=== PATIENT | female | born 1990 | race African-American/Black ===

== ENCOUNTER 2020-01-25 05:23 | Inpatient (IN) ==
[2020-01-25 06:04] LABS: Amorphous Crystals,Urine Occasional /HPF (Few); Bacteria,Urine Occasional /HPF (Few); Bilirubin,Urine Negative (Negative); Blood, Urine Small mg/dL (Negative); Glucose,Urine (UA) Negative (Negative); Hyaline Casts,Urine 7 /LPF (0-3); Ketones,Urine Negative (Negative); Mucus,Urine Few /LPF (Occasional); Nitrite,Urine Negative (Negative); Protein,Urine >=500 MG/DL; RBC,Urine 6 /HPF (0-4); Squamous Epithelial Cell,Urine Occasional /HPF (0-10); Urine Appearance CLOUDY (Clear); Urine Color Yellow (Yellow); Urine Specific Gravity 1.024 (1.001-1.035); Urine Urobilinogen < 2.0 EU/DL (0.2-1.0); WBC,Urine 11 /HPF (0-6)
[2020-01-25] MEDS ORDERED: LACTATED RINGERS 1,000 ML IV ONE ×2 (06:09→06:31)
[2020-01-25 06:20] LABS: Barbiturates Screen,Urine Negative (Negative); Benzodiazepines Screen,Urine Negative (Negative); Cannabinoid Screen,Urine Positive (Negative); Opiate Screen,Urine Negative (Negative); Phencyclidine Screen,Urine Negative (Negative)
[2020-01-25] MEDS ORDERED: LABETALOL 100 MG TABLET PO ONE (06:34)
[2020-01-25] MEDS ORDERED: BETAMETH SODIUM PHOS/ACETATE 30 MG/5 ML VIAL IM ONE (06:36)
[2020-01-25] MEDS ORDERED: FAMOTIDINE 20 MG/2 ML VIAL IV ONE (06:37)
[2020-01-25] MEDS ORDERED: CITRIC ACID/SODIUM CITRATE 30 ML UDCUP PO ONE (06:37)
[2020-01-25] MEDS ORDERED: ceFAZolin 3,000 MG in SYRINGE 1 EACH IV ONE ×2 (06:37→07:00)
[2020-01-25] MEDS ORDERED: LABETALOL 100 MG TABLET ONE (06:39)
[2020-01-25] MEDS ORDERED: hydrALAZINE 20 MG/1 ML VIAL ONE (06:39)
[2020-01-25] MEDS: hydrALAZINE 20 MG/1 ML VIAL IV PRN ×2 (06:42→07:01)
[2020-01-25 06:44] LABS: Basophils % 0.2 % (0.0-0.8); Eosinophils % 0.5 % (0.00-10.9); Hematocrit 34.3 VOL% (35.7-47.0); Hemoglobin 10.8 GM/DL (12.0-16.0); Immature Granulocytes Absolute 0.09 #; Lymphocytes # 1.9 10*3/uL (1.4-4.0); Lymphocytes % 21.6 % (21.3-54.2); Mean Corpuscular HGB Conc 31.5 GM/DL (32-36); Mean Corpuscular Volume 80.1 FL (87-102); Mean Platelet Volume 12.5 FL (9.6-12.0); Monocytes % 15.7 % (1.7-12.7); Platelet Count 250 T/CUMM (130-400); Red Blood Count 4.28 MC/CUMM (3.8-5.5); Red Cell Distribution Width 16.4 % (9.3-17.3); White Blood Count 8.7 T/CUMM (4-12)
[2020-01-25 06:58] LABS: Alanine Aminotransferase 28 U/L (13-56); Albumin 2.3 G/DL (3.4-5.0); Alkaline Phosphatase 162 U/L (45-117); Aspartate Amino Transferase 27 U/L (0-37); Bilirubin,Direct < 0.100 MG/DL (0.0-0.20); Bilirubin,Total < 0.39 MG/DL (0.2-1.0); Blood Urea Nitrogen 7 MG/DL (7-18); Calcium 8.9 MG/DL (8.5-10.1); Estimated Glom Filtration Rate 111 ML/MIN; Glucose 90 MG/DL (74-106); Osmolality,Calculated 272.7 MOS/KG (273-304); Total Protein 6.7 G/DL (6.4-8.3); Uric Acid 6.2 MG/DL (2.6-6.0)
[2020-01-25 06:59] LABS: INR 0.9; PT Patient Result 9.4 SECS (9.8-11.9); Partial Thromboplastin Time 29.2 SECS (23.9-33.8)
[2020-01-25] MEDS ORDERED: LACTATED RINGERS 1,000 ML IV SCH (07:00)
[2020-01-25] MEDS ORDERED: OXYTOCIN/LR 20 UNIT/1,000 ML BAG IV ONE ×3 (07:02→08:42)
[2020-01-25] MEDS ORDERED: miSOPROStoL 200 MCG TABLET ONE (07:03)
[2020-01-25] MEDS ORDERED: CARBOPROST TROMETHAMINE 250 MCG/ML AMP IM ONE ×2 (07:04→07:55)
[2020-01-25] MEDS ORDERED: METHYLERGONOVINE 0.2 MG/1 ML AMP ONE (07:04)
[2020-01-25] MEDS ORDERED: TRANEXAMIC ACID 1,000 MG/10 ML VIAL ONE (07:04)
[2020-01-25 07:06] LABS: Eosinophils 2 % (0-10); Hypochromasia 1+; Lymphocytes 20 % (20-55); Platelet Estimate Adequate; Segmented Neutrophils 69 % (50-85); Total Cells Counted 100
[2020-01-25] MEDS ORDERED: MAGNESIUM SULF RIDER 100 ML IV ONE ×2 (07:16)
[2020-01-25] MEDS ORDERED: MAGNESIUM SULF DRIP 40 GM/1,000 ML ML IV SCH (07:30)
[2020-01-25 08:11] LABS: Cord Arterial Blood HCO3 22.7 MMOL/L
[2020-01-25 08:14] LABS: Cord Venous Blood HCO3 21.3 MMOL/L; Cord Venous Blood PCO2 41.3 MMHG; Cord Venous Blood PO2 21.1 MMHG
[2020-01-25 08:25] LABS: Bilirubin,Urine Negative (Negative); Blood, Urine Trace mg/dL (Negative); Glucose,Urine (UA) Negative (Negative); Hyaline Casts,Urine 7 /LPF (0-3); Ketones,Urine Negative (Negative); Mucus,Urine Occasional /LPF (Occasional); Nitrite,Urine Negative (Negative); Protein,Urine >=500 MG/DL; Squamous Epithelial Cell,Urine Occasional /HPF (0-10); Urine Appearance Hazy (Clear); Urine Color Amber (Yellow); WBC,Urine 13 /HPF (0-6)
[2020-01-25 08:26] LABS: Urine Urobilinogen < 2.0 EU/DL (0.2-1.0)
[2020-01-25] MEDS ORDERED: HYDROmorphone 2 MG/1 ML VIAL IV PRN (08:38)
[2020-01-25] MEDS ORDERED: oxyCODONE/ACETAMINOPHEN 5-325 MG TABLET PO PRN (08:42)
[2020-01-25] MEDS ORDERED: BISACODYL 10 MG SUPP RECTAL PRN (08:42)
[2020-01-25] MEDS ORDERED: MEASLES/MUMPS/RUBELLA VACCINE 0.5 ML VIAL SUBCUT ONE (08:42)
[2020-01-25] MEDS ORDERED: ACETAMINOPHEN 325 MG TABLET PO PRN (08:42)
[2020-01-25] MEDS ORDERED: ONDANSETRON 4 MG/2 ML VIAL IV PRN (08:42)
[2020-01-25] MEDS ORDERED: LANOLIN 50% CREAM 0.3 OZ TUBE TOP PRN (08:42)
[2020-01-25] MEDS ORDERED: RHO(D) IMMUNE GLOBULIN 300 MCG SYRINGE IM ONE (08:42)
[2020-01-25] MEDS ORDERED: HYDROCORTISONE 2.5% RECTAL CREAM 30 GM TUBE TOP PRN (08:42)
[2020-01-25] MEDS ORDERED: WITCH HAZEL PADS 100/JAR TOP PRN (08:42)
[2020-01-25] MEDS ORDERED: DIPH/TET/ACEL PERT BOOSTER VACCINE 0.5 ML VIAL IM ONE (08:42)
[2020-01-25] MEDS ORDERED: BENZOCAINE 20%/MENTHOL 0.5% SPRAY 56 GM CAN TOP PRN (08:42)
[2020-01-25] MEDS ORDERED: LABETALOL 20 MG/4 ML SYRINGE IV ONE (08:49)
[2020-01-25] MEDS ORDERED: BUPIVACAINE SPINAL 0.75% 2 ML AMP SPINAL ONE (08:49)
[2020-01-25] MEDS ORDERED: MORPHINE 10 MG/10 ML VIAL ONE (08:50)
[2020-01-25] MEDS ORDERED: KETAMINE 500 MG/10 ML VIAL ONE (08:50)
[2020-01-25] MEDS ORDERED: MIDAZOLAM 2 MG/2 ML VIAL ONE (08:51)
[2020-01-25] MEDS ORDERED: ONDANSETRON 4 MG/2 ML VIAL ONE (08:51)
[2020-01-25] MEDS ORDERED: fentaNYL 100 MCG/2 ML VIAL ONE (08:51)
[2020-01-25] MEDS: ceFAZolin 1,000 MG in SYRINGE 1 EACH IV SCH ×2 (17:10→22:36)
[2020-01-25] MEDS: IBUPROFEN 800 MG TABLET PO PRN (21:41)
[2020-01-25] MEDS: DOCUSATE SODIUM 100 MG CAPSULE PO SCH (22:41)
[2020-01-26 04:20] LABS: Basophils % 0.1 % (0.0-0.8); Hematocrit 25.5 VOL% (35.7-47.0); Hemoglobin 8.1 GM/DL (12.0-16.0); Immature Granulocytes % 0.6 %; Lymphocytes # 1.4 10*3/uL (1.4-4.0); Lymphocytes % 8.7 % (21.3-54.2); Mean Corpuscular HGB Conc 31.8 GM/DL (32-36); Mean Corpuscular Volume 78.9 FL (87-102); Mean Platelet Volume 12.9 FL (9.6-12.0); Monocytes % 8.6 % (1.7-12.7); Platelet Count 218 T/CUMM (130-400); Red Blood Count 3.23 MC/CUMM (3.8-5.5); Red Cell Distribution Width 16.1 % (9.3-17.3); White Blood Count 15.8 T/CUMM (4-12)
[2020-01-26] MEDS ORDERED: oxyCODONE/ACETAMINOPHEN 5-325 MG TABLET PO PRN ×2 (08:33)
[2020-01-26] MEDS ORDERED: DIPH/TET/ACEL PERT BOOSTER VACCINE 0.5 ML VIAL IM ONE (08:33)
[2020-01-26] MEDS ORDERED: WITCH HAZEL PADS 100/JAR TOP PRN (08:33)
[2020-01-26] MEDS ORDERED: OXYTOCIN/LR 20 UNIT/1,000 ML BAG IV ONE (08:33)
[2020-01-26] MEDS ORDERED: HYDROCORTISONE 2.5% RECTAL CREAM 30 GM TUBE TOP PRN (08:33)
[2020-01-26] MEDS ORDERED: ACETAMINOPHEN 325 MG TABLET PO PRN (08:33)
[2020-01-26] MEDS ORDERED: IBUPROFEN 800 MG TABLET PO PRN (08:33)
[2020-01-26] MEDS ORDERED: MEASLES/MUMPS/RUBELLA VACCINE 0.5 ML VIAL SUBCUT ONE (08:33)
[2020-01-26] MEDS ORDERED: BISACODYL 10 MG SUPP RECTAL PRN (08:33)
[2020-01-26] MEDS ORDERED: BENZOCAINE 20%/MENTHOL 0.5% SPRAY 56 GM CAN TOP PRN (08:33)
[2020-01-26] MEDS ORDERED: RHO(D) IMMUNE GLOBULIN 300 MCG SYRINGE IM ONE (08:33)
[2020-01-26] MEDS ORDERED: ONDANSETRON 4 MG/2 ML VIAL IV PRN (08:33)
[2020-01-26] MEDS ORDERED: LANOLIN 50% CREAM 0.3 OZ TUBE TOP PRN (08:33)
[2020-01-26] MEDS: LABETALOL 200 MG TABLET PO SCH ×2 (08:40→16:40)
[2020-01-26] MEDS: IBUPROFEN 800 MG TABLET PO PRN ×2 (08:49→22:11)
[2020-01-26] MEDS ORDERED: DOCUSATE SODIUM 100 MG CAPSULE PO SCH (09:00)
[2020-01-26] MEDS: SIMETHICONE CHEW 80 MG TABLET PO PRN ×2 (10:32→20:06)
[2020-01-26] MEDS: oxyCODONE/ACETAMINOPHEN 5-325 MG TABLET PO PRN ×2 (10:32→20:07)
[2020-01-26] MEDS: MAGNESIUM HYDROXIDE SUSP 30 ML UDCUP PO PRN ×2 (10:32→22:11)
[2020-01-26] MEDS: DOCUSATE SODIUM 100 MG CAPSULE PO SCH ×3 (10:32→20:02)
[2020-01-26] MEDS ORDERED: FUROSEMIDE 40 MG TABLET PO ONE (19:42)
[2020-01-26] MEDS: FERROUS SULFATE 325 MG TABLET PO SCH (20:07)
[2020-01-27] MEDS: LABETALOL 200 MG TABLET PO SCH ×2 (00:15→07:59)
[2020-01-27] MEDS: IBUPROFEN 800 MG TABLET PO PRN (04:26)
[2020-01-27] MEDS ORDERED: FUROSEMIDE 40 MG TABLET PO ONE (06:00)
[2020-01-27 07:53] LABS: Basophils % 0.1 % (0.0-0.8); Eosinophils # 0.1 10*3/uL (0.0-0.87); Eosinophils % 0.5 % (0.00-10.9); Hematocrit 21.5 VOL% (35.7-47.0); Immature Granulocytes Absolute 0.11 #; Lymphocytes # 1.8 10*3/uL (1.4-4.0); Lymphocytes % 15.6 % (21.3-54.2); Mean Corpuscular HGB Conc 31.6 GM/DL (32-36); Mean Corpuscular Volume 80.5 FL (87-102); Mean Platelet Volume 12.1 FL (9.6-12.0); Monocytes % 11.4 % (1.7-12.7); Neutrophils % 71.4 % (38.7-73.9); Platelet Count 192 T/CUMM (130-400); Red Blood Count 2.67 MC/CUMM (3.8-5.5); Red Cell Distribution Width 16.5 % (9.3-17.3); White Blood Count 11.3 T/CUMM (4-12)
[2020-01-27 07:54] LABS: Hemoglobin 6.8 GM/DL (12.0-16.0)
[2020-01-27] MEDS: DOCUSATE SODIUM 100 MG CAPSULE PO SCH (08:00)
[2020-01-27] MEDS: FERROUS SULFATE 325 MG TABLET PO SCH (08:00)
[2020-01-27 12:07] VITALS: BP 135/78
== END 2020-01-27 12:25 | disposition home or self-care (01) | DRG 540 ==
LOC: N.LDOUT 05:23 → N.LD 06:37 → N.OB 01-26 09:38
PROVIDERS: ADMIT Specialist; ATTEND Specialist
PROC: LDCSECT (ICD-10-PCS; 2020-01-25 07:00)